=== PATIENT | female | born 1950 | race Caucasian/White ===

== ENCOUNTER → 2020-06-27 | Outpatient (CLI) | payer MEDICARE ==
--- NOTE | 2020-06-27 15:12 | Diagnostic Imaging Report ---
INDICATION: Routine screening. COMPARISON: No prior mammograms are available for comparison. 2-D and 3-D bilateral screening mammography was performed with CAD. Scattered fibroglandular densities are identified bilaterally. There are circumscribed nodules in the outer aspects of both breasts consistent with intramammary lymph nodes. Extensive parenchymal and vascular calcifications are noted bilaterally. No spiculated mass or malignant appearing microcalcifications are seen. There is a circumscribed density in the retroareolar right breast best seen on tomographic image 20 of 59 on the MLO view. Additional views would be recommended. IMPRESSION: BI-RADS 0. Retroareolar right breast density. Additional views and ultrasound are recommended for further evaluation. ACR BI-RADS Category 0: Incomplete. (Needs additional imaging evaluation). Result letter will be mailed to the patient. Note: At least 10% of breast cancer is not imaged by mammography. Dictated by: Dictated on workstation # [id number]
== END ==
LOC: RAD 11:15
PROVIDERS: ATTEND Nurse Practitioner Family
DX: Z12.31 Encounter for screening mammogram for malignant neoplasm of breast (principal)
CPT/HCPCS: 77063; 77067

== ENCOUNTER → 2021-04-15 | Outpatient (CLI) | payer MEDICARE ==
--- NOTE | 2021-04-15 10:19 | Diagnostic Imaging Report ---
INDICATION: Right breast density. Patient presents for additional views. COMPARISON: Correlation is made with the screening mammogram from 06/27/2020. TECHNIQUE: Unilateral right 2D and 3D diagnostic mammography was performed. This included spot compression CC and ML views as well as conventional 90 degree lateral views. The current study was evaluated with a Computer Aided Detection (CAD) system. FINDINGS: The additional views fail to demonstrate a discrete mass. There is normal dispersion of the fibroglandular elements. No mass is identified. There are diffuse benign parenchymal and vascular calcifications. IMPRESSION: The additional views fail to demonstrate a discrete mass. The patient may return to routine annual screening mammography. ACR BI-RADS Category 2: Benign findings. Result letter will be mailed to the patient. Note: At least 10% of breast cancer is not imaged by mammography. Dictated by: Dictated on workstation # [id number]
== END ==
LOC: RAD 09:15
PROVIDERS: ATTEND Nurse Practitioner Family
DX: N63.10 Unspecified lump in the right breast, unspecified quadrant (principal)
CPT/HCPCS: 77065; G0279